=== PATIENT | female | born 1980 | race Caucasian/White ===

== ENCOUNTER 2023-11-14 04:03 | Day surgery (SDC) | payer OTHER ==
[2023-11-14] VITALS (232 sets, daily range): BP systolic 88–161; BP diastolic 56–138
[~2023-11-14] VITALS: Ht 167.6 cm; Wt 73.2 kg
[2023-11-14] MEDS ORDERED: LACTATED RINGER'S 1,000 ML IV PRN ×3 (07:30→19:00)
[2023-11-14] MEDS ORDERED: cloNIDine HCL 0.1 MG/TAB PO PRN (07:30)
[2023-11-14] MEDS ORDERED: ALBUTEROL SULFATE 2.5 MG VIAL IN PRN (07:30)
[2023-11-14] MEDS ORDERED: PANTOPRAZOLE SODIUM Sesquihydr 40 MG/TAB PO PRN (07:30)
[2023-11-14] MEDS ORDERED: CYANOCOBALAMIN 500 MCG/TAB ( B12) PO PRN (07:30)
[2023-11-14] MEDS ORDERED: FAMOTIDINE 20 MG/TAB PO PRN (07:30)
[2023-11-14] MEDS ORDERED: SCOPOLAMINE 1.5 MG DIS TD PRN (07:30)
[2023-11-14] MEDS ORDERED: diazePAM 5 MG/TAB PO PRN ×2 (07:30→08:30)
[2023-11-14] MEDS ORDERED: ASCORBIC ACID 4,000 MG in SODIUM CHLORIDE 0.9% 1,000 ML IV SCH (08:00)
[2023-11-14 08:45] LABS: EOS% 0.3 % (0-8); HEMATOCRIT 37.9 % (37.0-47.0); HEMOGLOBIN 12.5 g/dl (12.0-16.0); LYMPH% 35.8 % (15-41); MEAN CELL VOLUME 83.7 fL CALC (80.0-100.0); MEAN CORPUSCULAR HGB 27.6 pG CALC (26.0-32.0); MONO% 10.9 % (2-13); NEUT# 1.57 thou/uL (2.00-7.15); RED BLOOD COUNT 4.53 mill/uL (4.20-5.60)
[2023-11-14 09:01] LABS: ALBUMIN 3.9 g/dL (3.2-5.0); BILIRUBIN, TOTAL 0.5 mg/dL (0.02-1.3); CREATININE 0.7 mg/dL (0.5-1.0); TOTAL PROTEIN 6.8 g/dL (6.3-8.2)
[2023-11-14] MEDS ORDERED: cloNIDine HCL 0.1 MG/TAB VT PRN (09:15)
[2023-11-14] MEDS ORDERED: PROPOFOL 100 ML IV PRN (09:15)
[2023-11-14] MEDS ORDERED: DEXAMETHASONE SODIUM PHOSPHATE PF 10 MG/ML SDV IV PRN ×2 (09:15→19:00)
[2023-11-14] MEDS ORDERED: POTASSIUM CHLORIDE 10 MEQ/50 ML BAG IV PRN (09:15)
[2023-11-14] MEDS ORDERED: DiphenhydrAMINE HCL 50 MG/ML SDV IV PRN (09:15)
[2023-11-14] MEDS ORDERED: NALTREXONE HCL 50 MG/TAB VT PRN (09:15)
[2023-11-14] MEDS ORDERED: STERILE WATER FOR IRRIGATION 1,000 ML BTL IR PRN (09:15)
[2023-11-14] MEDS ORDERED: ONDANSETRON HCl 4 MG/2 ML SDV IV PRN ×3 (09:15→19:00)
[2023-11-14] MEDS ORDERED: diazePAM 5 MG/TAB VT PRN (09:15)
[2023-11-14] MEDS ORDERED: MAGNESIUM SULFATE HEPTAHYDRATE 100 ML IV PRN (09:15)
[2023-11-14] MEDS ORDERED: OCTREOTIDE ACETATE 100 MCG/VIAL SDV SC PRN (09:15)
[2023-11-14] MEDS ORDERED: LIDOCAINE HCL 1% (10MG/ML) 100 MG/10 ML MDV IV PRN (09:15)
[2023-11-14] MEDS ORDERED: LIDOCAINE HCL 1% (10MG/ML) 100 MG/10 ML MDV VT PRN ×2 (09:15)
[2023-11-14] MEDS ORDERED: ROCURONIUM BROMIDE 10 MG/ML 5ML VIAL IV PRN (09:15)
[2023-11-14] MEDS ORDERED: MIDAZOLAM HCL 2 MG/2 ML VIAL IV PRN (09:15)
[2023-11-14] MEDS ORDERED: THIAMINE HCL 100 MG/ML 2ML VIAL IV PRN (09:15)
[2023-11-14] MEDS ORDERED: PROPOFOL 10 MG/ML 100ML VIAL IV PRN (09:15)
[2023-11-14] MEDS ORDERED: cloNIDine HYDROCHLORIDE 100 MCG/ML 10 ML INJ IV PRN (09:15)
[2023-11-14] MEDS ORDERED: SUCCINYLCHOLINE CHLORIDE 20 MG/ML 10ML VIAL IV PRN (09:15)
[2023-11-14] MEDS ORDERED: SODIUM CHLORIDE 0.9% 250 ML IV ONE (09:51)
[2023-11-14] MEDS ORDERED: PHENYLEPHRINE HCL 10 MG/ML VIAL ONE (09:51)
[2023-11-14] MEDS ORDERED: VENTOLIN HFA108 MCG IN (13:55)
[2023-11-14] MEDS ORDERED: IMITREX25 MG PO (13:56)
[2023-11-14] MEDS ORDERED: METOPROLOL TARTRATE 5 MG/5 ML VIAL IV SCH (14:00)
[2023-11-14] MEDS ORDERED: NALTREXONE50 MG PO (15:23)
[2023-11-14] MEDS ORDERED: KLONOPIN2 MG PO (15:24)
[2023-11-14] MEDS ORDERED: CLONIDINE0.1 MG PO (15:24)
[2023-11-14] MEDS ORDERED: PROMETHAZINE HCL 25 MG in SODIUM CHLORIDE 0.9% 50 ML IV PRN (19:00)
[2023-11-14] MEDS ORDERED: ACETAMINOPHEN 500 MG TAB PO PRN (19:00)
[2023-11-14] MEDS ORDERED: HALOPERIDOL LACTATE 5 MG/ML SDV IV PRN (19:00)
[2023-11-14] MEDS ORDERED: PROMETHAZINE HCL 12.5 MG in SODIUM CHLORIDE 0.9% 50 ML IV PRN (19:00)
[2023-11-14] MEDS ORDERED: ACETAMINOPHEN 1,000 MG/100 ML VIAL IV PRN (19:00)
[2023-11-14] MEDS ORDERED: KETOROLAC TROMETHAMINE 30 MG/ML SDV IV PRN (19:00)
[2023-11-14] MEDS ORDERED: PATIENT' OWN MED CONTROLLED 1 EA DOSE IV PRN (21:00)
[2023-11-14] MEDS ORDERED: diazePAM 10 MG/2 ML VIAL IV PRN (21:00)
[2023-11-14] MEDS ORDERED: cloNIDine HCL 0.1 MG/TAB PO SCH (23:00)
[2023-11-14] MEDS ORDERED: clonazePAM 1 MG/TAB PO SCH (23:00)
[2023-11-15] MEDS ORDERED: clonazePAM 1 MG/TAB PO PRN ×3 (04:00→17:35)
[2023-11-15] MEDS ORDERED: cloNIDine HCL 0.1 MG/TAB PO PRN (04:00)
[2023-11-15 04:06] VITALS: BP 104/62
[2023-11-15 05:19] LABS: BASO% 0.2 % (0-3); HEMATOCRIT 38.6 % (37.0-47.0); HEMOGLOBIN 13.4 g/dl (12.0-16.0); IMMATURE GRANULOCYTES 0.2 % (0.0-5.0); LYMPH% 10.3 % (15-41); MEAN CELL VOLUME 82.1 fL CALC (80.0-100.0); MEAN CORPUSCULAR HGB 28.5 pG CALC (26.0-32.0); MEAN CORPUSCULAR HGB CONC 34.7 g/dL CAL (32.0-36.0); MONO% 1.3 % (2-13); NEUT# 4.01 thou/uL (2.00-7.15); RED BLOOD COUNT 4.7 mill/uL (4.20-5.60); RED CELL DISTRI WIDTH 10.7 % (11.5-15.5)
[2023-11-15 05:29] LABS: ALBUMIN 3.8 g/dL (3.2-5.0); CREATININE 0.5 mg/dL (0.5-1.0); MAGNESIUM 2.3 mg/dL (1.6-2.3); POTASSIUM 3.7 mmol/l (3.5-5.1); TOTAL PROTEIN 6.7 g/dL (6.3-8.2)
[2023-11-15 05:37] LABS: BILIRUBIN, TOTAL 0.8 mg/dL (0.02-1.3)
[2023-11-15 07:11] VITALS: BP 117/61
[2023-11-15] MEDS ORDERED: ACETAMINOPHEN 325 MG/TAB PO SCH (08:00)
[2023-11-15] MEDS ORDERED: NALTREXONE HCL 50 MG/TAB PO SCH (08:00)
[2023-11-15] MEDS ORDERED: cloNIDine HCL 0.1 MG/TAB PO SCH ×2 (08:00→21:00)
[2023-11-15] MEDS ORDERED: PANTOPRAZOLE SODIUM Sesquihydr 40 MG/TAB PO SCH (08:00)
[2023-11-15] MEDS ORDERED: POTASSIUM CHLORIDE 20 MEQ/TAB PO SCH (08:00)
[2023-11-15] MEDS ORDERED: ACETAMINOPHEN 500 MG TAB PO PRN (09:00)
[2023-11-15] MEDS ORDERED: MAGNESIUM OXIDE 400 MG/TAB PO PRN (09:00)
[2023-11-15] MEDS ORDERED: Cholecalciferol 2,000 UNIT/TAB PO PRN (09:00)
[2023-11-15 20:09] VITALS: BP 123/77
[2023-11-16 04:40] VITALS: BP 124/73
[2023-11-16 06:28] LABS: HEMATOCRIT 37.5 % (37.0-47.0); MEAN CELL VOLUME 81.9 fL CALC (80.0-100.0); MEAN CORPUSCULAR HGB 28.4 pG CALC (26.0-32.0); MEAN CORPUSCULAR HGB CONC 34.7 g/dL CAL (32.0-36.0); RED BLOOD COUNT 4.58 mill/uL (4.20-5.60); RED CELL DISTRI WIDTH 11.3 % (11.5-15.5)
[2023-11-16 06:41] LABS: ALBUMIN 3.7 g/dL (3.2-5.0); BILIRUBIN, TOTAL 0.9 mg/dL (0.02-1.3); CREATININE 0.6 mg/dL (0.5-1.0); MAGNESIUM 2.4 mg/dL (1.6-2.3); POTASSIUM 3.6 mmol/l (3.5-5.1); TOTAL PROTEIN 6.5 g/dL (6.3-8.2)
[2023-11-16 07:09] VITALS: BP 143/76
[2023-11-16] MEDS ORDERED: NALTREXONE HCL 50 MG/TAB PO SCH (09:00)
[2023-11-16] MEDS ORDERED: POTASSIUM CHLORIDE 20 MEQ/TAB PO ONE (11:05)
[2023-11-16] MEDS ORDERED: MULTIPLE VITAMIN THIAMINE HCL IV ONE (11:15)
[2023-11-16] MEDS ORDERED: DEXTROSE 5% IV ONE (11:15)
[2023-11-16] MEDS ORDERED: NACL IV ONE (11:15)
[2023-11-16] MEDS ORDERED: MAGNESIUM SULFATE HEPTAHYDRATE 50 ML IV ONE (11:15)
[2023-11-16] MEDS ORDERED: PATIENT' OWN MED CONTROLLED 1 EA DOSE IV ONE ×2 (11:35→12:45)
[2023-11-16] MEDS ORDERED: KETOROLAC TROMETHAMINE 30 MG/ML SDV IV ONE (12:15)
[2023-11-16] MEDS ORDERED: NALTREXONE HCL 50 MG/TAB PO ONE (12:45)
[2023-11-16 12:49] VITALS: BP 131/75
[2023-11-16] MEDS ORDERED: POTASSIUM CHLORIDE 20MEQ 100 ML IV SCH (13:00)
[2023-11-16] MEDS ORDERED: cloNIDine HCL 0.1 MG/TAB PO SCH (13:30)
[2023-11-16] MEDS ORDERED: KETOROLAC TROMETHAMINE 30 MG/ML SDV IV PRN (15:05)
[2023-11-16] MEDS ORDERED: Pantoprazole Sodium 40 MG VIAL (Protonix) IV ONE (15:05)
[2023-11-16] MEDS ORDERED: ACETAMINOPHEN 1,000 MG/100 ML VIAL IV PRN (15:05)
[2023-11-17] MEDS ORDERED: Cholecalciferol 2,000 UNIT/TAB PO PRN (06:00)
[2023-11-17] MEDS ORDERED: ACETAMINOPHEN 500 MG TAB PO PRN (06:00)
[2023-11-17] MEDS ORDERED: MAGNESIUM OXIDE 400 MG/TAB PO PRN (06:00)
[2023-11-17 07:12] VITALS: BP 124/70
[2023-11-17 07:51] LABS: HEMATOCRIT 37.2 % (37.0-47.0); MEAN CELL VOLUME 81.6 fL CALC (80.0-100.0); MEAN CORPUSCULAR HGB 28.5 pG CALC (26.0-32.0); MEAN CORPUSCULAR HGB CONC 34.9 g/dL CAL (32.0-36.0); RED BLOOD COUNT 4.56 mill/uL (4.20-5.60); RED CELL DISTRI WIDTH 11.2 % (11.5-15.5)
[2023-11-17 08:45] LABS: ALBUMIN 3.7 g/dL (3.2-5.0); BILIRUBIN, TOTAL 1.2 mg/dL (0.02-1.3); CREATININE 0.6 mg/dL (0.5-1.0); MAGNESIUM 2.1 mg/dL (1.6-2.3); POTASSIUM 3.5 mmol/l (3.5-5.1); TOTAL PROTEIN 6.6 g/dL (6.3-8.2)
[2023-11-17] MEDS ORDERED: Pantoprazole Sodium 40 MG VIAL (Protonix) IV SCH (09:00)
[2023-11-17] MEDS ORDERED: POTASSIUM CHLORIDE 20 MEQ/TAB PO SCH (11:00)
== END 2023-11-17 12:18 | disposition home or self-care (01) | DRG 897 ==
LOC: ANR 04:03 → MS2 04:04 → ANR 08:00 → MS2 19:30 → ANR 11-17 12:18
PROVIDERS: ATTEND Anesthesiology
DX: F11.20 Opioid dependence, uncomplicated (principal)
CPT/HCPCS: J1100; J2354; J2470; J3475